=== PATIENT | female | born 1950 | race African-American/Black ===

== ENCOUNTER 2018-10-07 11:35 | Inpatient (IN) | payer OTHER ==
[~2018-10-07] VITALS: Ht 152.4 cm; Wt 69.9 kg
--- NOTE | ~2018-10-07 | HC ---
[facility] [place] [address] CONSULTATION Name: ALESSANDRA POSEY Room #: 218-[facility] IN M.R.#: [id number] Admission: 10/07/18 Attend Phys: Silver Matamoros MD Discharge: Date of : 52 Report #: [id number] THIS REPORT FOR: //name// CC: FAM unknown Silver Matamoros DATE OF SERVICE: 10/08/2018 HISTORY OF PRESENT ILLNESS: This is a 67-year-old female patient who was evaluated by me for seizures. The history is complicated. She indicates that she started having occipital neuralgia around 2004 and she was also hypertensive at that time. It became pretty bad and she has to take disability for that. She continued to be hypertensive and she developed seizure. She recently moved here and saw a neurologist. She was on diazepam on a continuous basis and they changed it to clonazepam as well as Lamictal. At one time, she was taking 75 mg p.o. b.i.d. of Lamictal but presently she is taking 50 mg of Lamictal. She is supposed to be on seizure medications like butalbital, acetaminophen and caffeine but she stated she is not taking that. That is listed that her medication, but she stated she does not take that. Her seizures are somewhat unusual. She has blinking in eyes. It happens daily. She also has palpitation and family thinks she is under a lot of stress. She herself think she is under a lot of stress. REVIEW OF SYSTEMS: Indicate that she has some chest pain and she had some nausea, vomiting and she has chronic headache. A 14-point review of system was carried out and is positive for multiple nonspecific symptom but she does have definite history of hypertension. Rest of the 14-point review of system was noncontributory. PAST MEDICAL HISTORY: Positive for seizures, but they are poorly defined seizure. FAMILY HISTORY: Negative for congenital epilepsy. SOCIAL HISTORY: She denies the use of alcohol. PHYSICAL EXAMINATION: NEUROLOGICAL: Indicate she is alert, responsive, able to follow simple and complex command. Her memory and fund of knowledge is unremarkable. Cranial nerve examination 2 through 12 looks unremarkable. She complained of subjective difference in sensation on both sides, but position sense is normal. Reflexes are symmetrical. There is no cerebellar sign. I could not look at the patient's fundus. GENERAL: She is moderately built individual. She does not have any dysmorphic features of eyes, ears and face. HEENT: Her vision and hearing looks adequate. [facility] [address] [address] CONSULTATION Name: ALESSANDRA POSEY Room #: 218-P ADM IN .R.#: [id number] Admission: 10/07/18 Attend Phys: Silver Matamoros MD Discharge: Date of : 52 Report #: [id number] NECK: There is no thyroid mass. CARDIAC: Examination is unremarkable. LUNGS: No respiratory difficulty or rhonchi. VITAL SIGNS: Blood pressure is 154/79, respirations 18, pulse is 75 and temperature is 97.9. LABORATORY DATA: WBC count is 8.5. Sodium is 137. RADIOLOGICAL DATA: She had an MRI, which is unremarkable. She had an EEG, which does not show any seizure activity. 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 If it is happening daily, it will be desirable to do a video monitored EEG, but that need to be done as an outpatient since we do not have any facility to do that. I will restart her Lamictal and if her episodes get controlled, then she should go and follow up with her own neurologist. She should take seizure precautions in the meantime. She has a lot of dizziness and also tomorrow, we will do an MRA to complete the workup. If that is also negative, that is as far as we can do here. I told her that I will start her on Lamictal. She is pretty certain that she is on 50 mg p.o. b.i.d. and that is the does I ordered. Thank you very much for this referral. Total time spent 50 minutes, most majority of that time was spent counseling and coordinating the patient's care. By: 08 Rip Marques MD /nt
--- NOTE | ~2018-10-07 | EKG ---
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
--- NOTE | ~2018-10-07 | EKG ---
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
--- NOTE | ~2018-10-07 | EKG ---
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
--- NOTE | ~2018-10-07 | EEG ---
[facility] [place] [address] ELECTROENCEPHALOGRAM Name: ALESSANDRA POSEY Room #: 218-P ADM IN M.R.#: [id number] Admission: 10/07/18 Attend Phys: Silver Matamoros MD Discharge: Date of : 52 Report #: [id number] THIS REPORT FOR: //name// CC: FAM unknown Silver Matamoros DATE OF SERVICE: 10/08/2018 This patient is being evaluated for the possibility of seizure. EEG was done by placing the electrode by standard 10-20 system of electrode placement. Both referential and sequential montages were used for recording. Background activity in this patient's EEG is about 11 Hz and 40 microvolt. This is a symmetrical activity. Photic stimulation was unremarkable. The patient became drowsy that is associated with bilateral slowing. In spite of the patient's history of seizures, no active epileptiform activity was noticed. IMPRESSION: This patient's EEG does not demonstrate any clear-cut epileptiform activity. It might be mentioned that EEG can be normal in a patient with seizure disorder. By: 1305 1324 Rip Marques MD /nt
--- NOTE | ~2018-10-07 | 2DMMODE ---
[facility] [address] [place] [address] 2 D/M-MODE ECHOCARDIOGRAM Name: ALESSANDRA POSEY Room #: 218-P ADM IN M.R.#: [id number] Admission: 10/07/18 Attend Phys: Silver Matamoros MD Discharge: Date of : 52 Date of Service: 10/08/18 1454 Report #: [id number] THIS REPORT FOR: //name// APPROVED REPORT Study performed: 10/08/2018 14:07:43 EXAM: Comprehensive 2D, Doppler, and color-flow Echocardiogram Patient Location: Echo lab Room #: 218 Status: routine BSA: 1.67 HR: 86 bpm BP: 151/65 mmHg Rhythm: NSR Other Information Study Quality: Good Indications Diabetes Palpitations Chest Pain Hypertension/HDD 2D Dimensions RVDd: 35.15 mm IVSd: 11.63 (7-11mm) LVOT Diam: 19.28 (18-24mm) LVDd: 41.09 mm PWd: 11.97 (7-11mm) Ascending Ao: 30.14 (22-36mm) LVDs: 23.54 (25-40mm) Aortic Root: 29.04 mm IVC: 11.00 mm Volumes Left Atrial Volume (Systole) Single Plane 4CH: 38.83 mL Single Plane 2CH: 25.35 mL LA ESV Index: 22.00 mL/m2 Aortic Valve AoV Peak Ismael.: 1.30 m/s AO Peak Gr.: 6.80 mmHg LVOT Max P.33 mmHg LVOT Max V: 0.91 m/s HOLGER Vmax: 2.04 cm2 Mitral Valve [facility] [address] [place] [address] 2 D/M-MODE ECHOCARDIOGRAM Name: ALESSANDRA POSEY Room #: 218-P [facility] IN ..#: [id number] Admission: 10/07/18 Attend Phys: Silver Matamoros MD Discharge: Date of : 52 Date of Service: 10/08/18 1454 Report #: [id number] E/A Ratio: 0.7 MV Decel. Time: 190.73 ms MV E Max Ismael.: 0.78 m/s MV A Ismael.: 1.11 m/s MV PHT: 55.31 ms IVRT: 143.02 ms Pulmonary Valve PV Peak Ismael.: 0.81 m/s PV Peak Gr.: 2.62 mmHg Pulmonary Vein P Vein S: 0.59 m/s P Vein A: 0.34 m/s P Vein D: 0.34 m/s P Vein A Dur.: 138.4 msec P Vein S/D Ratio: 1.74 Tricuspid Valve TR Peak Ismael.: 2.68 m/s TR Peak Gr.: 28.70 mmHg PA Pressure: 34.00 mmHg Left Ventricle The left ventricle is normal size. There is normal LV segmental wall motion. Mild concentric left ventricular hypertrophy. Left ventricular systolic function is hyperdynamic. LVEF is >70%. Grade I - abnormal relaxation pattern. Right Ventricle The right ventricle is normal size. The right ventricular systolic function is normal. Atria The left atrium size is normal. The right atrium size is normal. Aortic Valve The aortic valve is normal in structure. No aortic regurgitation is present. There is no aortic valvular stenosis. Mitral Valve The mitral valve is normal in structure. Trace mitral regurgitation. No evidence of mitral valve stenosis. Tricuspid Valve The tricuspid valve is normal in structure. There is trace tricuspid regurgitation. Estimated PAP 34 mmHg. There is mild pulmonary hypertension. [address] [address] 2 D/M-MODE ECHOCARDIOGRAM Name: ALESSANDRA POSEY Room #: 218-P [facility] IN M.R.#: [id number] Admission: 10/07/18 Attend Phys: Silver Matamoros MD Discharge: Date of : 52 Date of Service: 10/08/18 1454 Report #: [id number] Pulmonic Valve The pulmonary valve is normal in structure. There is no pulmonic valvular regurgitation. Great Vessels The aortic root is normal in size. IVC is normal in size and collapses >50% with inspiration. Pericardium Trace anterior pericardial effusion. <Conclusion> The left ventricle is normal size. Mild concentric left ventricular hypertrophy. Left ventricular systolic function is hyperdynamic. LVEF is >70%. Grade I - abnormal relaxation pattern. The right ventricle is normal size. The left atrium size is normal. The aortic valve is normal in structure. Trace mitral regurgitation. Trace mitral regurgitation. There is trace tricuspid regurgitation. Estimated PAP 34 mmHg. There is mild pulmonary hypertension. The aortic root is normal in size. Trace anterior pericardial effusion. <ELECTRONICALLY SIGNED> By: Danielito Amaro MD, FACC 10/08/18 1454 1454 1454 Danielito Amaro MD, FACC /INF
[2018-10-07 12:10] VITALS: BP 199/126
[2018-10-07 13:03] LABS: URINE BILIRUBIN NEGATIVE (Negative); URINE BLOOD NEGATIVE (Negative); URINE CLARITY CLEAR; URINE COLOR YELLOW; URINE GLUCOSE-RANDOM* 3+ (Negative); URINE KETONES NEGATIVE (Negative); URINE LEUKOCYTES-REFLEX NEGATIVE (Negative); URINE NITRITE-REFLEX NEGATIVE (Negative); URINE PROTEIN (DIPSTICK) NEGATIVE (Negative); URINE UROBILINOGEN 0.2 E.U./dl (0.2-1.0)
[2018-10-07 13:05] LABS: ABSOLUTE NEUTROPHILS 6.1 thou/uL (1.4-8.2); BASOPHILS 0.9 % (0.0-2.0); EOSINOPHILS 4.4 % (0.0-3.0); HEMOGLOBIN 14.8 gm/dL (12.0-15.0); LYMPHOCYTES 16.3 % (24.0-44.0); MCH 29.5 pg (26.0-34.0); MCHC 33.7 g/dL (28.0-37.0); MCV 87.5 fL (80.0-100.0); MONOCYTES 6.7 % (1.0-8.0); PLATELET COUNT 218 thou/uL (150-400); POLYS 71.7 % (36.0-66.0); RBC 5.03 mil/uL (4.20-5.00); RDW 12.7 % (10.5-14.5); WBC 8.5 thou/uL (4.0-11.0)
[2018-10-07 13:14] LABS: ANION GAP 10 mmol/L (7-16); BUN 11 mg/dL (7-18); CHLORIDE 102 mmol/L (98-107); CO2 25 mmol/L (21-32); CREATININE 0.9 mg/dL (0.6-1.0); GLUCOSE 388 mg/dL (74-106); POTASSIUM 3.6 mmol/L (3.5-5.1); SODIUM 137 mmol/L (136-145)
[2018-10-07 13:22] LABS: TROPONIN-I <0.06 ng/mL (<0.06)
[2018-10-07 14:39] VITALS: BP 172/80
[2018-10-07] MEDS ORDERED: LISINOPRIL40 MG PO (15:54)
[2018-10-07] MEDS ORDERED: PROCHLORPERAZINE5 M2 PO (15:55)
[2018-10-07] MEDS ORDERED: CARVEDILOL ER40 MG PO (15:55)
[2018-10-07] MEDS ORDERED: AMLODIPINE BESY10 MG PO (15:56)
[2018-10-07] MEDS ORDERED: BUTALBIT-ACETA1 EACH PO (15:56)
[2018-10-07] MEDS ORDERED: ATORVASTATIN CA40 MG PO (15:57)
[2018-10-07] MEDS ORDERED: PLAVIX 75 MG TA75 M1 PO (15:57)
[2018-10-07] MEDS ORDERED: CLONAZEPAM 0.50.5 M1 PO (15:58)
[2018-10-07] MEDS ORDERED: LEVEMIR FL100 UNIT/2 SQ (15:58)
[2018-10-07] MEDS ORDERED: HUMALOG KW100 UNIT/1 (15:59)
[2018-10-07 16:34] VITALS: BP 146/77
[2018-10-07 19:55] VITALS: BP 139/56
[2018-10-08 00:25] VITALS: BP 107/61
[2018-10-08 04:45] VITALS: BP 121/62
[2018-10-08 08:02] VITALS: BP 151/65
[2018-10-08 14:45] VITALS: BP 154/79
[2018-10-08 20:15] VITALS: BP 136/63
[2018-10-09 03:31] LABS: CALCIUM 8.8 mg/dL (8.5-10.1); CREATININE 0.9 mg/dL (0.6-1.0); POTASSIUM 3.7 mmol/L (3.5-5.1)
[2018-10-09 04:30] VITALS: BP 135/62
[2018-10-09 05:32] LABS: HEMATOCRIT 39.5 % (37.0-47.0); HEMOGLOBIN 13.1 gm/dL (12.0-15.0); MCH 28.9 pg (26.0-34.0); MCHC 33.2 g/dL (28.0-37.0); RBC 4.54 mil/uL (4.20-5.00); RDW 13.1 % (10.5-14.5); WBC 7.4 thou/uL (4.0-11.0)
[2018-10-09 08:34] VITALS: BP 169/68
[2018-10-09] MEDS ORDERED: LAMICTAL100 MG PO (10:12)
[2018-10-09 11:59] VITALS: BP 169/68
== END 2018-10-09 13:00 | disposition home or self-care (01) | DRG 100 ==
LOC: ER 11:35 → 2N 14:05 → EROBS 14:05 → 2N 16:41 → ENTRNSPT 10-09 12:46 → EDTRNSPTSTS 10-09 12:49 → 2N 10-09 13:00
PROVIDERS: Internal Medicine; Physician Assistant
PROC: 4A10X4Z Monitoring of Central Nervous Electrical Activity, External Approach (ICD-10-PCS; principal; 2018-10-08)
DX: G40.909 Epilepsy, unspecified, not intractable, without status epilepticus (principal); E43 Unspecified severe protein-calorie malnutrition; R00.2 Palpitations; R07.9 Chest pain, unspecified; I10 Essential (primary) hypertension; E78.00 Pure hypercholesterolemia, unspecified; R13.10 Dysphagia, unspecified; E11.42 Type 2 diabetes mellitus with diabetic polyneuropathy; R41.81 Age-related cognitive decline; M54.81 Occipital neuralgia; Z79.4 Long term (current) use of insulin; Z79.899 Other long term (current) drug therapy; Z88.6 Allergy status to analgesic agent; Z82.49 Family history of ischemic heart disease and other diseases of the circulatory system
CPT/HCPCS: 10081